=== PATIENT | female | born 1955 | race Caucasian/White ===

== ENCOUNTER 2018-04-17 08:40 | Day surgery (SDC) | payer BC ==
[~2018-04-17 08:40] MED LIST: Acetaminophen/HYDROcodone 325-5 MG Tab PO PRN; Bupivacaine 0.25%/EPINEPHrine 1:200,000 10 ML SDV INJECT ONE; Lactated Ringers 1,000 ML IV SCH; ceFAZolin 2 GM in Premix Bag 1 BAG IV ONE
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
[2018-04-17] MEDS ORDERED: Rocuronium 10 MG/ML 10 ML Syringe ONE (11:21)
[2018-04-17] MEDS ORDERED: Lidocaine 2% 5 ML SDV ONE (11:21)
[2018-04-17] MEDS ORDERED: Propofol 200 MG/20 ML SDV ONE (11:21)
[2018-04-17] MEDS ORDERED: fentaNYL 100 MCG/2 ML SDV ONE ×2 (11:22→12:56)
[2018-04-17] MEDS ORDERED: Midazolam 1 MG/ML 2 ML SDV ONE (11:22)
[2018-04-17] MEDS ORDERED: ceFAZolin/Dextrose,Iso-Osmotic 2 GM/50 ML Duplex Bag IV ONE (11:47)
[2018-04-17] MEDS ORDERED: Bupivacaine 25%/EPINEPHrine/PF 30 ML ONE (11:52)
[2018-04-17] MEDS ORDERED: HYDROmorphone 2 MG/ML Syringe ONE ×2 (12:22→13:13)
[2018-04-17] MEDS ORDERED: Ondansetron 4 MG/2 ML SDV ONE (13:33)
[2018-04-17] MEDS ORDERED: Ketorolac 30 MG/ML SDV ONE (13:33)
[2018-04-17] MEDS ORDERED: Meperidine PF 25 MG/ML Syringe IV PRN (15:16)
[2018-04-17] MEDS ORDERED: Ondansetron 4 MG/2 ML SDV IVPUSH PRN (15:16)
[2018-04-17] MEDS ORDERED: Promethazine 25 MG/ML SDV IM PRN (15:16)
[2018-04-17] MEDS ORDERED: fentaNYL 100 MCG/2 ML SDV IVPUSH PRN (15:16)
[2018-04-17] MEDS ORDERED: Acetaminophen 1,000 MG in Premix Bag 1 BAG IV PRN (15:18)
--- NOTE | 2018-04-17 16:09 | PCM.OPNOTE ---
- General Post-Op/Procedure Note Date of Surgery/Procedure: 04/17/18 Operative Procedure(s): bilateral breast reduction Pre Op Diagnosis: bilateral macromastia Post-Op Diagnosis: Same Anesthesia Technique: General ET Tube, Local Primary Surgeon: Maliha Bowden Complications: None Condition: Good Free Text/Narrative:: Right 1111g Left 903g
--- NOTE | 2018-04-17 16:51 | PCM.POSTAN ---
POST ANESTHESIA ASSESSMENT - MENTAL STATUS Mental Status: Alert, Oriented - RESPIRATORY Respiratory Status: Respiratory Rate WNL, Airway Patent, O2 Saturation Stable - CARDIOVASCULAR CV Status: Pulse Rate WNL, Blood Pressure Stable - GASTROINTESTINAL GI Status: No Symptoms - PAIN Pain Score: 0 - POST OP HYDRATION Hydration Status: Adequate & Stable
[2018-04-17 19:15] VITALS: BP 125/58
--- NOTE | 2018-04-20 17:50 | OR ---
SURGEON: VELASQUEZ WOO MD DATE OF PROCEDURE: 04/17/2018 PREOPERATIVE DIAGNOSIS: Bilateral macromastia. POSTOPERATIVE DIAGNOSIS: Bilateral macromastia. PROCEDURE: Bilateral breast reduction. 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 ANESTHESIA: General ET tube with local. INDICATIONS: Ms. Almanza is a 62-year-old female, seen today in evaluation for bilateral macromastia. Risks and benefits of reduction were discussed with her and she was in agreement to proceed. Risks were including, but not limited to bleeding, infection, damage to underlying or overlying structures, possible need for future interventions, and possible scarring. PROCEDURE IN DETAIL: After informed consent was obtained and placed on the chart, the patient was brought to the operating theatre and laid in supine position. After adequate general anesthesia was obtained, the area was prepped and draped, and a time-out was completed to confirm side and site. Preop anesthesia markings were noted, and the nipple was then outlined in an inferior pedicle, designed at 9 cm. Once adequately designed, attention was then paid to isolation of the inferior pedicle using a breast tourniquet after infiltration of local anesthesia. Once the inferior pedicle with the epithelialization sparing the nipple-areolar complex, attention was then paid to the superior skin flap dissecting 1 cm thick tapering to the chest wall medially and [address] to the chest wall laterally. Meticulous hemostasis was obtained, and the attention was then paid to isolation of the pedicle. Once adequately isolated, the intervening breast tissue had been removed and weighed for a total of 1111 g on the right and 903 g on the left. Meticulous hemostasis was obtained. The area was copiously irrigated, and the skin flaps were stapled over top of the inferior pedicle in appropriate approximation for reconstitution of the breasts. The patient was sat up and adequate symmetry was appreciated with minor adjustments. Once adequately confirmed, the new position of the nipple-areolar complexes was well wide and marked. The patient was then laid back in the supine position and dissection was carried circumferentially around the nipple- areolar complex and the nipple itself was brought through and stapled in place. The patient would like to be as small as possible and we did a complex test, however, any smaller would have likely compromise the nipple-areolar complex and thus dissection was completed at these amounts. Attention was then paid to closure using a deep 3-0 running Stratafix for the dermis and a running 4-0 Monocryl Stratafix for the skin. The patient tolerated this well, and all counts and needles were correct at the end of the case. Bilateral breasts were dressed with Steri-Strips, fluffs, and a compression bra. The patient tolerated this well, and all counts and needles were correct at the end of the case. FOLLOWUP INSTRUCTIONS: The patient will see us in clinic on Friday, sooner if any problems, questions, or concerns. NICA / SERVANDO /[id number]
== END 2018-04-17 19:30 | disposition home or self-care (01) ==
LOC: MW.SDS 08:40 → MW.MS 16:02 → MW.SDS 19:30
PROVIDERS: ATTEND Plastic Surgery
DX: N62 Hypertrophy of breast (principal); I10 Essential (primary) hypertension; E78.00 Pure hypercholesterolemia, unspecified; E66.9 Obesity, unspecified; Z68.32 Body mass index [BMI] 32.0-32.9, adult; F32.9 Major depressive disorder, single episode, unspecified; Z87.891 Personal history of nicotine dependence; Z79.899 Other long term (current) drug therapy
CPT/HCPCS: 19318; A9270; J0690; J1170; J1885; J2001; J2250; J2405; J2704; J3010; J7120; 88302

== ENCOUNTER 2018-09-02 13:50 | Observation (INO) | payer BC ==
[2018-09-02] MEDS ORDERED: Sodium Chloride 0.9% 10 ML Syringe FLUSH PRN (13:58)
[2018-09-02] MEDS ORDERED: Sodium Chloride 0.9% 1,000 ML IV ONE (13:58)
[2018-09-02] MEDS ORDERED: Sodium Chloride 0.9% 2.5 ML Syringe FLUSH PRN (13:58)
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
--- NOTE | 2018-09-02 14:11 | CT ---
EXAMINATION: Non contrast CT head. Coronal and sagittal reformats. HISTORY: Pain FINDINGS: No evidence of intra or extra axial hemorrhage, mass, midline shift, hydrocephalus or edema. No hypoattenuation changes in the major vascular territories to suggest acute infarct. No abnormal intracranial calcifications are detected. No evidence of substantial vascular calcifications. Tiny mucous retention cyst within the right maxillary sinus. Mastoid air cells and middle ears are clear. Pituitary fossa appears unremarkable. Orbits and globes are symmetric. Calvarium is intact. No evidence of skull fracture. IMPRESSION: No acute intracranial findings. The findings were called to the ER at 2:09 PM.
[2018-09-02] MEDS ORDERED: Labetalol 100 MG/20 ML MDV IVPUSH ONE (14:15)
[2018-09-02] MEDS ORDERED: Aspirin 325 MG Tab PO ONE (14:15)
--- NOTE | 2018-09-02 14:33 | CR ---
EXAMINATION: Portable chest radiograph HISTORY: Shortness of breath. FINDINGS: The trachea is midline. The cardiomediastinal silhouette is within normal limits. No pulmonary infiltrates, effusions or pneumothorax. Osseous structures appear unremarkable. IMPRESSION: No acute cardiopulmonary process.
[2018-09-02 14:47] LABS: CHLORIDE,CL 107 mmol/L (98-107); SODIUM,NA 141 mmol/L (136-145)
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
--- NOTE | 2018-09-02 16:10 | PCM.SN ---
- Free Text/Narrative Note: Dictation # [id number]
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
[2018-09-02] MEDS ORDERED: Ondansetron 4 MG/2 ML SDV IVPUSH PRN (16:33)
[2018-09-02] MEDS ORDERED: Acetaminophen 325 MG Tab PO PRN (16:33)
--- NOTE | 2018-09-02 16:47 | CONS ---
DATE OF CONSULTATION: DATE OF : 1955 REASON FOR CONSULTATION: Troponin elevation. HISTORY OF PRESENT ILLNESS: This is a 62-year-old female who has a history of former smoking, hypertension, chronic joint pain. She was sent here from the clinic due to the concern of having a stroke, high blood pressure, and confusion. She has been in her usual state of health until today. She saw her primary care doctor for the joint pain for possible injection. However, her blood pressure was high. She mentioned to her primary care regarding confusion that she had, just started today, and also was noticed by her as well as her daughter. She felt like she could not think straight, and she could not think right, but she felt like her speech was slurred slightly. No blurry vision. No headaches. No neck pain. No weakness on one side. Not passing out. Then, she was directly sent to the emergency room from the clinic. In the emergency room, due to the concern about a stroke, a stroke code was called and Neurology was consulted. The diagnosis for stroke is still pending, but less likely to be per Neurology. Initial blood pressure was 200/109. She got 10 mg of labetalol IV, and the blood pressure dropped down to 150/90. Her heart rate was still regular at the rate of 70 to 90, sinus rhythm, no ST changes. Troponin was drawn and it showed 0.2 elevation. She totally denies chest pain or discomfort, heaviness, shortness of breath, or heart racing. She denied history of a heart attack or having a heart stent in the past. EKG looks benign. No ST changes that I could see. PAST MEDICAL HISTORY: Includes hypertension, joint pain, high cholesterol, and nondiabetic. SOCIAL HISTORY: She is a former smoker, stopped 5 years ago. No drug use. No alcohol use. FAMILY HISTORY: Noncontributory. CURRENT MEDICATIONS: She could not remember, but she stated that she takes Norvasc at home. She received one dose of 10 mg of IV push of labetalol and 325 aspirin was given. PHYSICAL EXAMINATION: VITAL SIGNS: The initial blood pressure was after labetalol, it improved to 150/90, heart rate of 70 to 90, O2 saturation is 97% on room air, respirations 18, and temperature is 96.8. HEENT: Not pale. No jaundice. NECK: No JVD. HEART: Normal S1, S2. No murmur. LUNGS: Clear. ABDOMEN: Soft and nontender. Bowel sounds present. No hepatosplenomegaly. EXTREMITIES: No edema. IMAGING: EKG shows sinus rhythm, heart rate 91, AK interval 134, QRS duration 79, and QTc interval 467. LABORATORY DATA: CBC showed WBC 9, hematocrit of 36, and platelets 293. Sodium 141, potassium 4, chloride 107, bicarb 19, BUN 11, and creatinine 0.6. Troponin 0.2. TSH is 1.03. ASSESSMENT AND PLAN: This is a 62-year-old female with history of hypertension, came in with confusion, concerning of a stroke, with troponin elevation. She denied symptoms of chest pain or shortness of breath. No EKG changes. I am not exactly sure that this is necessarily going to be acute coronary syndrome. However, troponin has to be cycled. EKG needs to be repeated next morning. The troponin elevation could be due to hypertensive urgency as well. Echocardiogram should be ordered. CARROL AL /[id number]
[2018-09-02] MEDS ORDERED: Enoxaparin 40 MG/0.4 ML Syringe SUBCUT SCH (21:00)
[2018-09-02] MEDS ORDERED: cefTRIAXone 1 GM in Premix Bag 1 BAG IV SCH (22:00)
[2018-09-03] MEDS ORDERED: Labetalol 100 MG/20 ML MDV IVPUSH ONE (03:12)
[2018-09-03 06:31] LABS: HEMOGLOBIN A1C 6.4 % (4.5-6.2)
[2018-09-03 06:35] LABS: CHLORIDE,CL 109 mmol/L (98-107); SODIUM,NA 144 mmol/L (136-145)
[2018-09-03 08:37] VITALS: BP 154/84
[2018-09-03] MEDS ORDERED: atorvaSTATin 10 MG Tab PO SCH (09:00)
[2018-09-03] MEDS ORDERED: Omeprazole 20 MG Cap.CR PO SCH (09:00)
[2018-09-03] MEDS ORDERED: buPROPion 150 MG Tab.ER PO SCH (09:00)
[2018-09-03] MEDS ORDERED: Lisinopril 10 MG Tab PO SCH (09:59)
[2018-09-03] MEDS ORDERED: amLODIPine 5 MG Tab PO SCH (10:00)
--- NOTE | 2018-09-03 10:46 | PCM.DCSUM1 ---
Discharge Summary - Hospital Course Brief History: This 62 year old female with a pmh of HTN, hyperlipidemia, bipolar disorder, and depression presented with altered mental status and speech changes. She initially presented to [facility] for appointment due to shoulder pain but was directed to the emergency department due to her symptoms. She reports that she didn't feel quite right when she woke up this morning. her daughter is at bedside currently and reports she has some forgetfulness normally but today she seemed different which concerned their family and her dad. She went to bed last night feeling slightly off, and then woke up today with this confusion and some speech difficulties. She is unable to recall date or where she is. She knows who she is and the president. She otherwise is having difficulty recalling. Daughter reports improvement once BP was decreased. She denies headache, neck pain, no visual concerns, fevers, or chest pain. No shortness of breath or abdominal pain. No urinary concerns, no recent diarrhea or constipation. No black or bloody BMs. She denies weakness to limbs or numbness. She denies recent narcotic use recently, even though she has been experiencing increased R shoulder pain. Daughter reports a recent change in medication form, from pill to liquid for of Clonazepam. They deny medication changes to be, but endorsed to Dr Hauser medication changes with Tisha Miller, Mental health THREADER OPERATOR. In ED, labwork WNL withthe exception of elevated troponin. CXR negative. Head CT negative, EKG SR with no acute ST segment changes or ischemic signs. BP initially on arrival was 220/119, she was given Labetolol 10 mg IV, which brought BP down to 150-180/90s. Dr Hauser, neurology and Dr Aponte, cardiology were consulted in ED, please see their consultations. We appreciate their assistance. She will be admitted observation for AMS, rule out CVA. Dr Lazo. Diagnosis: Stroke: No Modified Jayson Scale: No Symptoms at All Modified Sonoma Scale Score: 0 - Discharge Data Discharge Date: 09/03/18 Discharge Disposition: Home, Self-Care 01 Condition: Stable - Discharge Diagnosis/Problem(s) (1) Altered mental status SNOMED Code(s): 864151050 ICD Code: R41.82 - ALTERED MENTAL STATUS, UNSPECIFIED Status: Acute Current Visit: Yes (2) HTN (hypertension) SNOMED Code(s): 95622513 ICD Code: I10 - ESSENTIAL (PRIMARY) HYPERTENSION Status: Chronic Current Visit: Yes Qualifiers: Hypertension type: essential hypertension Qualified Code(s): I10 - Essential (primary) hypertension (3) Dyslipidemia SNOMED Code(s): 269527629 ICD Code: E78.5 - HYPERLIPIDEMIA, UNSPECIFIED Status: Chronic Current Visit: Yes (4) Hx of smoking SNOMED Code(s): 732930658 ICD Code: Z87.891 - PERSONAL HISTORY OF NICOTINE DEPENDENCE Status: Chronic Current Visit: Yes (5) Bipolar 1 disorder SNOMED Code(s): 779724581 ICD Code: F31.9 - BIPOLAR DISORDER, UNSPECIFIED Status: Chronic Current Visit: Yes (6) Depression SNOMED Code(s): 44341273 ICD Code: F32.9 - MAJOR DEPRESSIVE DISORDER, SINGLE EPISODE, UNSPECIFIED Status: Chronic Current Visit: Yes (7) Encephalopathy SNOMED Code(s): 67216665 ICD Code: G93.40 - ENCEPHALOPATHY, UNSPECIFIED Status: Chronic Current Visit: No - Patient Summary/Data Consults: Consultations 09/02/18 14:55 Consult to Physician [CONS] Stat 09/02/18 16:33 Consult to Physician [CONS] Routine - Patient Instructions Diet: Heart Healthy Diet, Diabetic Diet Activity: No Strenuous Activities Driving: Do Not Drive Showering/Bathing: May Shower Notify Provider of: Fever, Increased Pain, Swelling and Redness, Drainage, Nausea and/or Vomiting - Discharge Plan *PRESCRIPTION DRUG MONITORING PROGRAM REVIEWED*: Not Applicable *COPY OF PRESCRIPTION DRUG MONITORING REPORT IN PATIENT RUBEN: Not Applicable Prescriptions/Med Rec: Aspirin 81 mg PO BEDTIME #30 tab.chew atorvaSTATin [Lipitor] 10 mg PO BEDTIME #30 tab Cephalexin [Keflex] 500 mg PO Q12H #10 capsule Home Medications: Home Meds ClonazePAM [KlonoPIN] 0.5 mg PO TID 10/28/14 [History] Haloperidol [Haldol] 5 mg PO TID 10/28/14 [History] Temazepam [Restoril] 15 mg PO BEDTIME PRN 10/28/14 [History] amLODIPine [Norvasc] 10 mg PO DAILY 10/28/14 [History] atorvaSTATin Calcium [Atorvastatin Calcium] 20 mg PO DAILY 10/28/14 [History] buPROPion [Wellbutrin XL] 150 mg PO DAILY 10/28/14 [History] Lisinopril 10 mg PO QAM 04/15/18 [History] Meloxicam 15 mg PO DAILY 04/15/18 [History] Omeprazole 40 mg PO QAM 04/15/18 [History] Aspirin 81 mg PO BEDTIME #30 tab.chew 09/03/18 [Rx] Cephalexin [Keflex] 500 mg PO Q12H #10 capsule 09/03/18 [Rx] atorvaSTATin [Lipitor] 10 mg PO BEDTIME #30 tab 09/03/18 [Rx] Oxygen Therapy Mode: Room Air Patient Handouts: Fat and Cholesterol Restricted Eating Plan, Diabetes Mellitus and Nutrition, Adult Referrals: PCP,Unknown [Primary Care Provider] - (Arrage follow up with Dr Lazo in 1 week. Arrange follow up ИВАН with Tisha Miller to evaluate medications. Make follow up with Dr Aponte, Cardiology, [facility], for follow up on heart and to get stress test scheduled. ) - Discharge Summary/Plan Comment DC Time >30 min.: No Discharge Summary/Plan Comment: Admitting Diagnoses: AMS Elevated troponin HTN UTI Discharge Diagnoses: AMS- resolved Elevated troponin- trending down HTN UTI Borderline DM Type 2 Hyperlipidemia Other PMH: Bipolar Depression Kristopher was admitted with AMS. She was evaluated by Dr Hauser, neurology for AMS. MRI of brain was obtained, which showed no obvious signs of acute infarct, though images were not optimal due to movement. Permissive HTN was allowed as stroke was ruled out. This morning Lisinopril and Norvasc restarted. She is feeling much better this morning, reports she is back to her baseline. She is fuzzy on the year still, but her reports this is her normal forgetfulness. UA revealed mild UTI with pyruai, Rocephin was started. Haldol, Clonazepam and Temazepam were held overnight. Troponin plateaued at 0.922, still no ACS symptoms. No chest pain, arm pain, jaw pain or nausea. She reports feeling her normal self. I spoke with Dr Aponte, repeat troponin this morning was 0.869, trending down. EKG SR, no ST changes. No arrhythmias noted overnight. He recommended discharge home and he will follow up with patient as outpatient to schedule stress test.Feels the troponin leak may be due to hypertensive urgency event yesterday. No ECHO available today, so I will order this to be complete as an outpatient. She and are ager to be discharged home today. She was educated on borderline DM with A1c 6.4, she was encouraged to monitor diet and lose weight and this should be rechecked in 3 months. She will also be started on ASA daily along with Atorvastatin 10 mg daily for hyperlipidemia. She is to follow up with PCP in 1 week, Dr Lazo. She is to make arrangements to speak with Tisha Miller regarding mental health medications and lowering dosages as possible. She will also need to arrange appointment with Dr Aponte for 1-2 weeks as outpatient. She will be continued on Keflex for 5 more days for UTI. - General Info Date of Service: 09/03/18 Admission Dx/Problem (Free Text: Admission Diagnosis/Problem Admission Diagnosis/Problem Confusion Subjective Update: Alert and oriented this morning. reports she is at her baseline and appears much improved from yesterday's events. She denies chest pain, SOB or palpitations. No concerns at all this morning, except requesting discharge home. Functional Status: Reports: Pain Controlled, Tolerating Diet, Ambulating, Urinating - Review of Systems General: Reports: No Symptoms. Denies: Fever, Weakness, Fatigue Pulmonary: Reports: No Symptoms. Denies: Shortness of Breath Cardiovascular: Reports: No Symptoms. Denies: Chest Pain, Palpitations, Dyspnea on Exertion, Edema, Lightheadedness Gastrointestinal: Reports: No Symptoms. Denies: Abdominal Pain, Nausea, Vomiting Genitourinary: Reports: No Symptoms. Denies: Dysuria, Frequency, Burning Musculoskeletal: Reports: No Symptoms Skin: Reports: No Symptoms Neurological: Reports: No Symptoms. Denies: Confusion, Headache, Tremors, Weakness, Change in Speech Psychiatric: Reports: No Symptoms - Patient Data Vitals - Most Recent: Last Vital Signs Temp 97.1 F 09/03/18 08:00 Pulse 86 09/03/18 08:00 Resp 16 09/03/18 08:00 BP 154/84 H 09/03/18 10:25 Pulse Ox 96 09/03/18 08:00 Weight - Most Recent: 73.1 kg I&O - Last 24 hours: Intake & Output 07/0309/03/18 09/03/18 22:59 06:59 14:59 Intake Total 240 300 Output Total 400 Balance 240 -100 Lab Results - Last 24 hrs: Laboratory Results - last 24 hr 09/02/18 09/02/18 09/02/18 Range/Units 13:56 13:56 13:56 WBC 9.65 (4.0-11.0) K/uL RBC 4.33 (4.30-5.90) M/uL Hgb 11.4 L (12.0-16.0) g/dL Hct 36.3 (36.0-46.0) % MCV 83.8 (80.0-98.0) fL MCH 26.3 L (27.0-32.0) pg MCHC 31.4 (31.0-37.0) g/dL RDW Std Deviation 48.8 (28.0-62.0) fl RDW Coeff of Jin 16 H (11.0-15.0) % Plt Count 293 (150-400) K/uL MPV 10.00 (7.40-12.00) fL Neut % (Auto) 72.4 (48.0-80.0) % Lymph % (Auto) 18.8 (16.0-40.0) % Russell % (Auto) 6.4 (0.0-15.0) % Eos % (Auto) 2.0 (0.0-7.0) % Baso % (Auto) 0.4 (0.0-1.5) % Neut # (Auto) 7.0 H (1.4-5.7) K/uL Lymph # (Auto) 1.8 (0.6-2.4) K/uL Russell # (Auto) 0.6 (0.0-0.8) K/uL Eos # (Auto) 0.2 (0.0-0.7) K/uL Baso # (Auto) 0.0 (0.0-0.1) K/uL Nucleated RBC % 0.0 /100WBC Nucleated RBCs # 0 K/uL INR 0.91 Sodium 141 (136-145) mmol/L Potassium 4.0 (3.5-5.1) mmol/L Chloride 107 (98-107) mmol/L Carbon Dioxide 19.7 L (21.0-32.0) mmol/L BUN 11 (7.0-18.0) mg/dL Creatinine 0.6 (0.6-1.0) mg/dL Est Cr Clr Drug Dosing 68.93 mL/min Estimated GFR (MDRD) > 60.0 ml/min Glucose 122 H (74-106) mg/dL Hemoglobin A1c (4.5-6.2) % Calcium 9.3 (8.5-10.1) mg/dL Total Bilirubin 0.2 (0.2-1.0) mg/dL AST 28 (15-37) IU/L ALT 27 (14-63) IU/L Alkaline Phosphatase 116 (46-116) U/L Troponin I 0.209 H* (0.000-0.056) ng/mL Total Protein 7.7 (6.4-8.2) g/dL Albumin 3.9 (3.4-5.0) g/dL Globulin 3.8 (2.6-4.0) g/dL Albumin/Globulin Ratio 1.0 (0.9-1.6) Triglycerides (0-200) mg/dL Cholesterol (50-200) mg/dL LDL Cholesterol, Calc (60-180) mg/dL VLDL Cholesterol (5-55) mg/dL HDL Cholesterol (40-60) mg/dL Cholesterol/HDL Ratio (3.3-6.0) Vitamin B12 (193-986) pg/mL TSH 3rd Generation 1.03 (0.36-3.74) uIU/mL Urine Color Urine Appearance Urine pH (5.0-8.0) Ur Specific [place] (1.001-1.035) Urine Protein (NEGATIVE) mg/dL Urine Glucose (UA) (NEGATIVE) mg/dL Urine Ketones (NEGATIVE) mg/dL Urine Occult Blood (NEGATIVE) Urine Nitrite (NEGATIVE) Urine Bilirubin (NEGATIVE) Urine Urobilinogen (<2.0) EU/dL Ur Leukocyte Esterase (NEGATIVE) Urine RBC (0-2/HPF) Urine WBC (0-5/HPF) Ur Epithelial Cells (NONE-FEW) Urine Bacteria (NEGATIVE) Urine Mucus (NONE-MOD) Urine Opiates Screen (NEGATIVE) Ur Oxycodone Screen (NEGATIVE) Urine Methadone Screen (NEGATIVE) Ur Barbiturates Screen (NEGATIVE) Ur Phencyclidine Scrn (NEGATIVE) Ur Amphetamine Screen (NEGATIVE) U Methamphetamines Scrn (NEGATIVE) U Benzodiazepines Scrn (NEGATIVE) U Cocaine Metab Screen (NEGATIVE) U Marijuana (THC) Screen (NEGATIVE) Ethyl Alcohol mg/dL 09/02/18 09/02/18 09/02/18 Range/Units 13:56 18:45 18:45 WBC (4.0-11.0) K/uL RBC (4.30-5.90) M/uL Hgb (12.0-16.0) g/dL Hct (36.0-46.0) % MCV (80.0-98.0) fL MCH (27.0-32.0) pg MCHC (31.0-37.0) g/dL RDW Std Deviation (28.0-62.0) fl RDW Coeff of Jin (11.0-15.0) % Plt Count (150-400) K/uL MPV (7.40-12.00) fL Neut % (Auto) (48.0-80.0) % Lymph % (Auto) (16.0-40.0) % Russell % (Auto) (0.0-15.0) % Eos % (Auto) (0.0-7.0) % Baso % (Auto) (0.0-1.5) % Neut # (Auto) (1.4-5.7) K/uL Lymph # (Auto) (0.6-2.4) K/uL Russell # (Auto) (0.0-0.8) K/uL Eos # (Auto) (0.0-0.7) K/uL Baso # (Auto) (0.0-0.1) K/uL Nucleated RBC % /100WBC Nucleated RBCs # K/uL INR Sodium (136-145) mmol/L Potassium (3.5-5.1) mmol/L Chloride (98-107) mmol/L Carbon Dioxide (21.0-32.0) mmol/L BUN (7.0-18.0) mg/dL Creatinine (0.6-1.0) mg/dL Est Cr Clr Drug Dosing mL/min Estimated GFR (MDRD) ml/min Glucose (74-106) mg/dL Hemoglobin A1c (4.5-6.2) % Calcium (8.5-10.1) mg/dL Total Bilirubin (0.2-1.0) mg/dL AST (15-37) IU/L ALT (14-63) IU/L Alkaline Phosphatase (46-116) U/L Troponin I (0.000-0.056) ng/mL Total Protein (6.4-8.2) g/dL Albumin (3.4-5.0) g/dL Globulin (2.6-4.0) g/dL Albumin/Globulin Ratio (0.9-1.6) Triglycerides (0-200) mg/dL Cholesterol (50-200) mg/dL LDL Cholesterol, Calc (60-180) mg/dL VLDL Cholesterol (5-55) mg/dL HDL Cholesterol (40-60) mg/dL Cholesterol/HDL Ratio (3.3-6.0) Vitamin B12 (193-986) pg/mL TSH 3rd Generation (0.36-3.74) uIU/mL Urine Color YELLOW Urine Appearance CLEAR Urine pH 6.5 (5.0-8.0) Ur Specific [place] 1.010 (1.001-1.035) Urine Protein NEGATIVE (NEGATIVE) mg/dL Urine Glucose (UA) NEGATIVE (NEGATIVE) mg/dL Urine Ketones TRACE H (NEGATIVE) mg/dL Urine Occult Blood TRACE-INTACT H (NEGATIVE) Urine Nitrite NEGATIVE (NEGATIVE) Urine Bilirubin NEGATIVE (NEGATIVE) Urine Urobilinogen 0.2 (<2.0) EU/dL Ur Leukocyte Esterase SMALL H (NEGATIVE) Urine RBC 2-3 (0-2/HPF) Urine WBC 2-4 (0-5/HPF) Ur Epithelial Cells OCCASIONAL (NONE-FEW) Urine Bacteria FEW (NEGATIVE) Urine Mucus FEW (NONE-MOD) Urine Opiates Screen NEGATIVE (NEGATIVE) Ur Oxycodone Screen NEGATIVE (NEGATIVE) Urine Methadone Screen NEGATIVE (NEGATIVE) Ur Barbiturates Screen NEGATIVE (NEGATIVE) Ur Phencyclidine Scrn NEGATIVE (NEGATIVE) Ur Amphetamine Screen NEGATIVE (NEGATIVE) U Methamphetamines Scrn NEGATIVE (NEGATIVE) U Benzodiazepines Scrn POSITIVE (NEGATIVE) U Cocaine Metab Screen NEGATIVE (NEGATIVE) U Marijuana (THC) Screen NEGATIVE (NEGATIVE) Ethyl Alcohol <3 mg/dL 09/02/18 09/03/18 09/03/18 Range/Units 20:21 02:00 05:08 WBC 7.24 (4.0-11.0) K/uL RBC 4.09 L (4.30-5.90) M/uL Hgb 10.7 L (12.0-16.0) g/dL Hct 34.2 L (36.0-46.0) % MCV 83.6 (80.0-98.0) fL MCH 26.2 L (27.0-32.0) pg MCHC 31.3 (31.0-37.0) g/dL RDW Std Deviation 48.9 (28.0-62.0) fl RDW Coeff of Jin 16 H (11.0-15.0) % Plt Count 269 (150-400) K/uL MPV 10.00 (7.40-12.00) fL Neut % (Auto) 74.8 (48.0-80.0) % Lymph % (Auto) 17.1 (16.0-40.0) % Russell % (Auto) 6.2 (0.0-15.0) % Eos % (Auto) 1.5 (0.0-7.0) % Baso % (Auto) 0.4 (0.0-1.5) % Neut # (Auto) 5.4 (1.4-5.7) K/uL Lymph # (Auto) 1.2 (0.6-2.4) K/uL Russell # (Auto) 0.5 (0.0-0.8) K/uL Eos # (Auto) 0.1 (0.0-0.7) K/uL Baso # (Auto) 0.0 (0.0-0.1) K/uL Nucleated RBC % 0.0 /100WBC Nucleated RBCs # 0 K/uL INR Sodium (136-145) mmol/L Potassium (3.5-5.1) mmol/L Chloride (98-107) mmol/L Carbon Dioxide (21.0-32.0) mmol/L BUN (7.0-18.0) mg/dL Creatinine (0.6-1.0) mg/dL Est Cr Clr Drug Dosing mL/min Estimated GFR (MDRD) ml/min Glucose (74-106) mg/dL Hemoglobin A1c (4.5-6.2) % Calcium (8.5-10.1) mg/dL Total Bilirubin (0.2-1.0) mg/dL AST (15-37) IU/L ALT (14-63) IU/L Alkaline Phosphatase (46-116) U/L Troponin I 0.860 H* 0.922 H* (0.000-0.056) ng/mL Total Protein (6.4-8.2) g/dL Albumin (3.4-5.0) g/dL Globulin (2.6-4.0) g/dL Albumin/Globulin Ratio (0.9-1.6) Triglycerides (0-200) mg/dL Cholesterol (50-200) mg/dL LDL Cholesterol, Calc (60-180) mg/dL VLDL Cholesterol (5-55) mg/dL HDL Cholesterol (40-60) mg/dL Cholesterol/HDL Ratio (3.3-6.0) Vitamin B12 (193-986) pg/mL TSH 3rd Generation (0.36-3.74) uIU/mL Urine Color Urine Appearance Urine pH (5.0-8.0) Ur Specific [place] (1.001-1.035) Urine Protein (NEGATIVE) mg/dL Urine Glucose (UA) (NEGATIVE) mg/dL Urine Ketones (NEGATIVE) mg/dL Urine Occult Blood (NEGATIVE) Urine Nitrite (NEGATIVE) Urine Bilirubin (NEGATIVE) Urine Urobilinogen (<2.0) EU/dL Ur Leukocyte Esterase (NEGATIVE) Urine RBC (0-2/HPF) Urine WBC (0-5/HPF) Ur Epithelial Cells (NONE-FEW) Urine Bacteria (NEGATIVE) Urine Mucus (NONE-MOD) Urine Opiates Screen (NEGATIVE) Ur Oxycodone Screen (NEGATIVE) Urine Methadone Screen (NEGATIVE) Ur Barbiturates Screen (NEGATIVE) Ur Phencyclidine Scrn (NEGATIVE) Ur Amphetamine Screen (NEGATIVE) U Methamphetamines Scrn (NEGATIVE) U Benzodiazepines Scrn (NEGATIVE) U Cocaine Metab Screen (NEGATIVE) U Marijuana (THC) Screen (NEGATIVE) Ethyl Alcohol mg/dL 09/03/18 09/03/18 09/03/18 Range/Units 05:08 05:08 09:03 WBC (4.0-11.0) K/uL RBC (4.30-5.90) M/uL Hgb (12.0-16.0) g/dL Hct (36.0-46.0) % MCV (80.0-98.0) fL MCH (27.0-32.0) pg MCHC (31.0-37.0) g/dL RDW Std Deviation (28.0-62.0) fl RDW Coeff of Jin (11.0-15.0) % Plt Count (150-400) K/uL MPV (7.40-12.00) fL Neut % (Auto) (48.0-80.0) % Lymph % (Auto) (16.0-40.0) % Russell % (Auto) (0.0-15.0) % Eos % (Auto) (0.0-7.0) % Baso % (Auto) (0.0-1.5) % Neut # (Auto) (1.4-5.7) K/uL Lymph # (Auto) (0.6-2.4) K/uL Russell # (Auto) (0.0-0.8) K/uL Eos # (Auto) (0.0-0.7) K/uL Baso # (Auto) (0.0-0.1) K/uL Nucleated RBC % /100WBC Nucleated RBCs # K/uL INR Sodium 144 (136-145) mmol/L Potassium 3.3 L (3.5-5.1) mmol/L Chloride 109 H (98-107) mmol/L Carbon Dioxide 22.7 (21.0-32.0) mmol/L BUN 8 (7.0-18.0) mg/dL Creatinine 0.6 (0.6-1.0) mg/dL Est Cr Clr Drug Dosing 68.93 mL/min Estimated GFR (MDRD) > 60.0 ml/min Glucose 133 H (74-106) mg/dL Hemoglobin A1c 6.4 H (4.5-6.2) % Calcium 8.8 (8.5-10.1) mg/dL Total Bilirubin (0.2-1.0) mg/dL AST (15-37) IU/L ALT (14-63) IU/L Alkaline Phosphatase (46-116) U/L Troponin I 0.869 H* (0.000-0.056) ng/mL Total Protein (6.4-8.2) g/dL Albumin (3.4-5.0) g/dL Globulin (2.6-4.0) g/dL Albumin/Globulin Ratio (0.9-1.6) Triglycerides 178 (0-200) mg/dL Cholesterol 260 H (50-200) mg/dL LDL Cholesterol, Calc 155 (60-180) mg/dL VLDL Cholesterol 35 (5-55) mg/dL HDL Cholesterol 69 H (40-60) mg/dL Cholesterol/HDL Ratio 3.8 (3.3-6.0) Vitamin B12 677 (193-986) pg/mL TSH 3rd Generation (0.36-3.74) uIU/mL Urine Color Urine Appearance Urine pH (5.0-8.0) Ur Specific [place] (1.001-1.035) Urine Protein (NEGATIVE) mg/dL Urine Glucose (UA) (NEGATIVE) mg/dL Urine Ketones (NEGATIVE) mg/dL Urine Occult Blood (NEGATIVE) Urine Nitrite (NEGATIVE) Urine Bilirubin (NEGATIVE) Urine Urobilinogen (<2.0) EU/dL Ur Leukocyte Esterase (NEGATIVE) Urine RBC (0-2/HPF) Urine WBC (0-5/HPF) Ur Epithelial Cells (NONE-FEW) Urine Bacteria (NEGATIVE) Urine Mucus (NONE-MOD) Urine Opiates Screen (NEGATIVE) Ur Oxycodone Screen (NEGATIVE) Urine Methadone Screen (NEGATIVE) Ur Barbiturates Screen (NEGATIVE) Ur Phencyclidine Scrn (NEGATIVE) Ur Amphetamine Screen (NEGATIVE) U Methamphetamines Scrn (NEGATIVE) U Benzodiazepines Scrn (NEGATIVE) U Cocaine Metab Screen (NEGATIVE) U Marijuana (THC) Screen (NEGATIVE) Ethyl Alcohol mg/dL Med Orders - Current: Current Medications Acetaminophen (Tylenol) 650 mg PO Q4H PRN PRN Reason: Pain (mild 1-3) Amlodipine Besylate (Norvasc) 10 mg PO DAILY [facility] Last Admin: 09/03/18 10:25 Dose: 10 mg Atorvastatin Calcium (Lipitor) 20 mg PO DAILY [facility] Last Admin: 09/03/18 08:41 Dose: 20 mg Bupropion HCl (Wellbutrin Xl) 150 mg PO DAILY [facility] Last Admin: 09/03/18 08:41 Dose: 150 mg Enoxaparin Sodium (Lovenox) 40 mg SUBCUT Q24H [facility] Last Admin: 09/02/18 20:46 Dose: 40 mg Ceftriaxone Sodium/Dextrose 1 (gm/ Premix) 50 mls @ 100 mls/hr IV Q24H [facility] Last Admin: 09/02/18 23:03 Dose: 100 mls/hr Lisinopril (Prinivil) 10 mg PO [facility] Last Admin: 09/03/18 10:25 Dose: 10 mg Omeprazole (Omeprazole) 40 mg PO [facility] Last Admin: 09/03/18 08:41 Dose: 40 mg Ondansetron HCl (Zofran) 4 mg IVPUSH Q4H PRN PRN Reason: Nausea Sodium Chloride (Saline Flush) 10 ml FLUSH ASDIRECTED PRN PRN Reason: Keep Vein Open Last Admin: 09/02/18 14:19 Dose: 10 ml Sodium Chloride (Saline Flush) 2.5 ml FLUSH ASDIRECTED PRN PRN Reason: Keep Vein Open Last Admin: 09/02/18 14:19 Dose: 2.5 ml Discontinued Medications Aspirin (Aspirin) 325 mg PO ONETIME ONE Stop: 09/02/18 14:16 Last Admin: 09/02/18 14:26 Dose: 325 mg Sodium Chloride (Normal Saline) 1,000 mls @ 999 mls/hr IV STAT ONE Stop: 09/02/18 14:58 Last Admin: 09/02/18 14:19 Dose: 999 mls/hr Labetalol HCl (Normodyne) 10 mg IVPUSH ONETIME ONE; Protocol Stop: 09/02/18 14:16 Last Admin: 09/02/18 14:27 Dose: 10 mg Labetalol HCl (Normodyne) 10 mg IVPUSH ONETIME ONE; Protocol Stop: 09/03/18 03:13 Last Admin: 09/03/18 03:30 Dose: 10 mg - Exam General: Reports: Alert, Oriented, Cooperative, No Acute Distress Lungs: Reports: Clear to Auscultation, Normal Respiratory Effort Cardiovascular: Reports: Regular Rate, Regular Rhythm, No Murmurs GI/Abdominal Exam: Normal Bowel Sounds, Soft, Non-Tender, No Mass Extremities: Normal Inspection, Normal Range of Motion Neurological: Reports: Normal Gait, Normal Speech, Normal Tone, Strength Equal Bilateral, Other (reports year as "19". ) Psy/Mental Status: Reports: Alert, Normal Affect, Normal Mood
[2018-09-03] MEDS ORDERED: Cephalexin 500 MG Cap PO ONE (10:49)
--- NOTE | 2018-09-03 15:10 | MR ---
EXAM DATE: 09/02/18 PATIENT'S AGE: 62 Patient: JOSE TIERNEY Facility: [facility] Site Site : [id number] Study: MRI-Head STROKE PROTOCOL [id number]/[id number] 5:52:00 PM Ordering Physician: IKE YEUNG Final Report: INDICATION: 62-year-old female. Confusion. CVA. TECHNIQUE: Sagittal T1 axial FLAIR T2 diffusion-weighted and susceptibility weighted images were obtained. FINDINGS: Image quality is severely compromised by patient motion artifact. The ventricles are normal in size and shape. No mass effect or midline shift. No convincing evidence of acute infarction is seen on the DWI images are submitted. No evidence of intracranial hemorrhage. IMPRESSION: 1. Technically limited study due to motion artifact. 2. No convincing evidence of recent ischemic infarction or intracranial hemorrhage. Dictated by Silverio Lopez MD @ Sep 02 2018 6:11PM Signed by: Silverio Lopez MD @09/02/2018 6:14:17 PM (Electronic Signature) Report Signed by Proxy. [facility]
== END 2018-09-03 11:45 | disposition home or self-care (01) ==
LOC: MW.ED 13:50 → MW.MS 16:22
PROVIDERS: ADMIT Internal Medicine; ATTEND Internal Medicine
DX: R41.82 Altered mental status, unspecified (principal); I10 Essential (primary) hypertension; E78.5 Hyperlipidemia, unspecified; F31.30 Bipolar disorder, current episode depressed, mild or moderate severity, unspecified; G93.40 Encephalopathy, unspecified; N39.0 Urinary tract infection, site not specified; R73.03 Prediabetes; E66.9 Obesity, unspecified; Z68.31 Body mass index [BMI] 31.0-31.9, adult; Z87.891 Personal history of nicotine dependence; Z79.899 Other long term (current) drug therapy; Z79.1 Long term (current) use of non-steroidal anti-inflammatories (NSAID); Z79.82 Long term (current) use of aspirin; Z79.2 Long term (current) use of antibiotics
CPT/HCPCS: 36415; 70450; 70551; 71045; 80048; 80053; 80061; 80305; 81001; 82607; 83036; 84443; 84484; 85025; 85610; 87086; 93005; 96361; 96374; 99285; A4217; A9270; G0480; J0696; J1650; J3490; J7040; 96365; 96372; 96375; 96376; G0378

== ENCOUNTER 2018-12-07 13:36 | Emergency (ER) | payer BC ==
[2018-12-07] MEDS ORDERED: Sodium Chloride 0.9% 10 ML Syringe FLUSH PRN (13:39)
[2018-12-07] MEDS ORDERED: Sodium Chloride 0.9% 2.5 ML Syringe FLUSH PRN (13:39)
[2018-12-07] MEDS ORDERED: Nitroglycerin 0.4 MG Tab.SL SL PRN (13:57)
[2018-12-07] MEDS ORDERED: Sodium Chloride 0.9% 500 ML IV ONE (13:57)
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
--- NOTE | 2018-12-07 14:41 | CR ---
INDICATION: Chest pain; shortness of breath. COMPARISON: Portable AP chest September 02, 2018. TECHNIQUE: Portable AP chest. FINDINGS: Normal size cardiac silhouette. Clear lung alejandra with no evidence of acute pneumonic infiltrates or CHF. No pneumothorax or pleural effusion. Impression :negative chest. Dictated by Latia Peterson MD @ Dec 07 2018 2:39PM Signed by Dr. Latia Peterson @ Dec 07 2018 2:41PM
[2018-12-07 14:42] LABS: BLOOD UREA NITROGEN,BUN 12 mg/dL (7.0-18.0); CARBON DIOXIDE,CO2 20.7 mmol/L (21.0-32.0); CHLORIDE,CL 102 mmol/L (98-107); GLUCOSE RANDOM 105 mg/dL (74-106); POTASSIUM,K 3.7 mmol/L (3.5-5.1); SODIUM,NA 137 mmol/L (136-145)
[2018-12-07] MEDS ORDERED: Morphine 2 MG/ML Syringe IVPUSH ONE (14:48)
[2018-12-07 14:57] VITALS: BP 107/55; PULSE 71
[2018-12-07] MEDS ORDERED: Heparin Sodium 5,000 Units/ML Vial IVPUSH ONE (14:57)
[2018-12-07] MEDS ORDERED: Heparin Sod,Pork In 0.45% Nacl 25,000 UNIT/500 ML IV.SOLN IV ONE (15:10)
== END 2018-12-07 15:38 ==
LOC: MW.ED 13:36
DX: I21.4 Non-ST elevation (NSTEMI) myocardial infarction (principal); I10 Essential (primary) hypertension; E78.00 Pure hypercholesterolemia, unspecified; E66.9 Obesity, unspecified; F32.9 Major depressive disorder, single episode, unspecified; Z68.32 Body mass index [BMI] 32.0-32.9, adult; Z79.82 Long term (current) use of aspirin; Z79.899 Other long term (current) drug therapy
CPT/HCPCS: 36415; 71045; 80053; 84484; 85025; 85610; 85730; 96361; 96374; 96375; 99285; A9270; J1644; J2270; J7040; 93005

== ENCOUNTER 2020-12-08 10:08 | Emergency (ER) | payer MEDICARE, OTHER ==
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
[2020-12-08 10:28] VITALS: BP 153/89; PULSE 83
[2020-12-08] MEDS ORDERED: Lidocaine 1% with EPINEPHrine 1:100,000 20 ML MDV INJECT ONE (11:01)
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
== END 2020-12-08 11:45 | disposition home or self-care (01) ==
LOC: MW.ED 10:08
DX: S01.01XA Laceration without foreign body of scalp, initial encounter (principal); E78.00 Pure hypercholesterolemia, unspecified; I10 Essential (primary) hypertension; M19.90 Unspecified osteoarthritis, unspecified site; E66.9 Obesity, unspecified; Z68.31 Body mass index [BMI] 31.0-31.9, adult; Z79.02 Long term (current) use of antithrombotics/antiplatelets; Z79.82 Long term (current) use of aspirin; Z79.899 Other long term (current) drug therapy; W18.30XA Fall on same level, unspecified, initial encounter
CPT/HCPCS: 12002; 70450; 70450-26; 99283-25